=== PATIENT | female | born 1990 | race Caucasian/White ===

== ENCOUNTER 2016-11-30 17:10 | Emergency (ER) | payer OTHER ==
[~2016-11-30] VITALS: Ht 167.6 cm; Wt 60.0 kg
[2016-11-30 17:14] VITALS: BP 136/88; PULSE 81; RESP 23; TEMP 98; O2SAT 100
[2016-11-30 17:15] VITALS: RESP 16; O2SAT 98
[2016-11-30] MEDS ORDERED: SODIUM CHLORIDE 0.9% FLUSH 5 ML FLUSH IVF PRN (17:30)
--- NOTE | 2016-11-30 17:40 | RADRPT ---
EXAM DATE/TIME: 11/30/2016 17:29 [place] COMPARISON: No previous studies available for comparison. INDICATIONS : Dizziness today. RADIATION DOSE: 38.58 CTDIvol (mGy) MEDICAL HISTORY : None SURGICAL HISTORY : None. ENCOUNTER: Initial ACUITY: 1 day PAIN SCALE: 0/10 LOCATION: cranial TECHNIQUE: Multiple contiguous axial images were obtained of the head. Using automated exposure control and adj ustment of the mA and/or kV according to patient size, radiation dose was kept as low as reasonably a chievable to obtain optimal diagnostic quality images. FINDINGS: CEREBRUM: The ventricles are normal for age. No evidence of midline shift, mass lesion, hemorrhage or acute in farction. No extra-axial fluid collections are seen. POSTERIOR FOSSA: The cerebellum and brainstem are intact. The 4th ventricle is midline. The cerebellopontine angle i s unremarkable. EXTRACRANIAL: The visualized portion of the orbits is intact. SKULL: The calvaria is intact. No evidence of skull fracture. CONCLUSION: Normal examination. Clinton Croft MD on November 30, 2016 at 17:37 Board Certified Radiologist. This report was verified electronically.
[2016-11-30 17:43] LABS: AUTOMATED NEUTROPHIL # 7.7 TH/MM3 (1.8-7.7); BASOPHIL # 0.1 TH/MM3 (0-0.2); BASOPHIL % 0.5 % (0.0-2.0); EOSINOPHIL # 0.3 TH/MM3 (0-0.4); EOSINOPHIL % 2.7 % (0.0-4.0); HEMATOCRIT 38.6 % (35.0-46.0); HEMO FLAGS DIFF FINAL; LYMPH % 22.5 % (9.0-44.0); LYMPHOCYTE # 2.6 TH/MM3 (1.0-4.8); MEAN CELL VOLUME 94.8 FL (80.0-100.0); MEAN CORPUSCULAR HEMOGLOBIN 32.5 PG (27.0-34.0); MEAN CORPUSCULAR HGB CONC 34.3 % (32.0-36.0); MONO % 8.1 % (0.0-8.0); NEUT % 66.2 % (16.0-70.0); PLATELET COUNT 272 TH/MM3 (150-450); RED BLOOD COUNT 4.08 MIL/MM3 (4.00-5.30); RED CELL DISTRIBUTION WIDTH 12.8 % (11.6-17.2); WHITE BLOOD COUNT 11.7 TH/MM3 (4.0-11.0)
[2016-11-30 18:00] VITALS: BP 105/66; PULSE 79; RESP 16; O2SAT 99
[2016-11-30 18:17] LABS: BICARBONATE 25.6 MEQ/L (21.0-32.0); MAGNESIUM 2.2 MG/DL (1.5-2.5); POTASSIUM 3.5 MEQ/L (3.5-5.1)
--- NOTE | 2016-11-30 18:52 | PD ---
HPI Chief Complaint: Neuro Symptoms/ Deficits Time Seen by Provider: 17:17 Travel History International Travel<30 days: No Contact w/Intl Traveler<30days: No Traveled to known affect area: No History of Present Illness HPI Patient is a healthy 26-year-old female presents the emergency department with recurrent syncopal episodes. Over the course the last week patient has not had 3 episodes of fainting. Each time she loses consciousness. She denies any chest pain, shortness of breath or palpitations but does have some lightheadedness and nausea. Patient was initially seen in the emergency department in [facility] and had blood work and an EKG that was reportedly negative. She was referred to outpatient primary care who did an EKG and Holter monitor that was reportedly negative. Patient was scheduled for outpatient neurology follow-up and EEG to be performed on Saturday but had a recurrent episode today prompting ER visit. No family history of prolonged QT, and a BP W, Brugada. No reported postictal phase, tongue biting or urinary incontinence. PFSH Past Medical History Medical History: Denies Significant Hx Diminished Hearing: No Tetanus Vaccination: Unknown Influenza Vaccination: No ?: Not LMP: 11/30/16 Past Surgical History Section: Yes (X1) Social History Alcohol Use: No Tobacco Use: No Substance Use: No Allergies-Medications (Allergen,Severity, Reaction): Coded Allergies: Sulfa (Verified Allergy, Severe, Anaphylaxis, 11/30/16) Reported Meds & Prescriptions Reported Meds & Active Scripts Active No Active Prescriptions or Reported Medications Review of Systems Except as stated in HPI: all other systems reviewed are Neg Physical Exam Narrative GENERAL: Well-appearing female in no acute distress SKIN: Warm and dry. HEAD: Normocephalic. EYES: Pupils equal and round. No scleral icterus. No injection or drainage. ENT: No nasal bleeding or discharge. Mucous membranes pink and moist. NECK: Supple without nuchal rigidity CARDIOVASCULAR: Regular rate and rhythm. No murmur appreciated. RESPIRATORY: No accessory muscle use. Clear to auscultation. Breath sounds equal bilaterally. GASTROINTESTINAL: Abdomen soft, non-tender, nondistended. MUSCULOSKELETAL: No obvious deformities. No edema. NEUROLOGICAL: Awake and alert. Normal speech. PSYCHIATRIC: Appropriate mood and affect; insight and judgment normal. Data Data Last Documented VS Vital Signs Date Time Temp Pulse Resp B/P Pulse Ox O2 Delivery O2 Flow Rate FiO2 3/17/17 18:00 79 16 105/66 99 Room Air 11/30/16 17:14 98.0 Orders Electrocardiogram (11/30/16 17:17) Basic Metabolic Panel (Bmp) (11/30/16 17:17) Complete Blood Count With Diff (11/30/16 17:17) Magnesium (Mg) (11/30/16 17:17) Ct Brain W/O Iv Contrast(Rout) (11/30/16 17:17) Ecg Monitoring (11/30/16 17:17) Iv Access Insert/Monitor (11/30/16 17:17) Oximetry (11/30/16 17:17) Sodium Chloride 0.9% Flush (Ns Flush) (11/30/16 17:30) Thyroid Stimulating Hormone (11/30/16 17:17) Labs Laboratory Tests Test 11/30/16 17:20 White Blood Count 11.7 TH/MM3 Red Blood Count 4.08 MIL/MM3 Hemoglobin 13.3 GM/DL Hematocrit 38.6 % Mean Corpuscular Volume 94.8 FL Mean Corpuscular Hemoglobin 32.5 PG Mean Corpuscular Hemoglobin 34.3 % Concent Red Cell Distribution Width 12.8 % Platelet Count 272 TH/MM3 Mean Platelet Volume 9.2 FL Neutrophils (%) (Auto) 66.2 % Lymphocytes (%) (Auto) 22.5 % Monocytes (%) (Auto) 8.1 % Eosinophils (%) (Auto) 2.7 % Basophils (%) (Auto) 0.5 % Neutrophils # (Auto) 7.7 TH/MM3 Lymphocytes # (Auto) 2.6 TH/MM3 Monocytes # (Auto) 1.0 TH/MM3 Eosinophils # (Auto) 0.3 TH/MM3 Basophils # (Auto) 0.1 TH/MM3 CBC Comment DIFF FINAL Differential Comment Sodium Level 139 MEQ/L Potassium Level 3.5 MEQ/L Chloride Level 106 MEQ/L Carbon Dioxide Level 25.6 MEQ/L Anion Gap 7 MEQ/L Blood Urea Nitrogen 15 MG/DL Creatinine 0.85 MG/DL Estimat Glomerular Filtration 82 ML/MIN Rate Random Glucose 84 MG/DL Calcium Level 8.5 MG/DL Magnesium Level 2.2 MG/DL Thyroid Stimulating Hormone 1.740 uIU/ML 3rd Gen [facility] Medical Decision Making Medical Screen Exam Complete: Yes Emergency Medical Condition: Yes Medical Record Reviewed: Yes Differential Diagnosis 26-year-old healthy female here with complaint of syncopal episode 3 over the course the last week. Differential includes arrhythmia, electrolyte abnormality , symptomatic anemia, and less likely seizure. Narrative Course Patient placed on monitor, IV established and blood obtained. A twelve-lead EKG shows sinus rhythm with short DC interval at [address] abnormality, normal intervals. No evidence of WPW, Brugada, prolonged QT. CBC , BMP, TSH, magnesium were obtained and unremarkable. CT of the brain was obtained and negative. Patient was reassured and encouraged to follow up as an outpatient with PCP and neurologist for further workup. Diagnosis Primary Impression: Syncope Qualified Code: R55 - Syncope, unspecified syncope type Referrals: Neurologist 3 days Primary Care Physician call for appointment Patient Instructions: General Instructions, Syncope (ED) Additional Instructions: Follow-up with neurologist as scheduled on Saturday. Return to the emergency department for the warning signs discussed. Med/Other Pt SpecificInfo: No Change to Meds Scripts No Active Prescriptions or Reported Meds Disposition: 01 DISCHARGE HOME Condition: Stable Tammie Stapleton MD Nov 30, 2016 18:52
--- NOTE | 2016-11-30 21:52 | EKG ---
Date Performed: 11/30/2016 Time Performed: 17:17:55 PTAGE: 26 years EKG: Sinus rhythm WITH SHORT OR INTERVAL BORDERLINE ECG NO PREVIOUS TRACING DOCTOR: Ezio Allen Interpretating Date/Time 11/30/2016 21:50:43
== END 2016-11-30 19:41 | disposition home or self-care (01) ==
LOC: NEPE 17:10
DX: R55 Syncope and collapse (principal); R42 Dizziness and giddiness; R11.0 Nausea; R94.31 Abnormal electrocardiogram [ECG] [EKG]
CPT/HCPCS: 70450; 80048; 83735; 84443; 85025; 93005